=== PATIENT | male | born 1980 | race Hispanic/Latino ===

== ENCOUNTER → 2020-04-14 | Day surgery (SDC) | payer BC, OTHER ==
[2020-04-11 13:21] LABS: BASOPHILS % 0.3 % (0.0-1.0); EOSINOPHILS # (AUTO) 0.1 (0.0-0.4); EOSINOPHILS % 1.3 % (0.0-6.0); HEMATOCRIT 49.3 % (38.2-49.6); HEMOGLOBIN 16.7 g/dL (14.0-18.0); LYMPHOCYTES # (AUTO) 1.7 (1.0-3.2); LYMPHOCYTES % 27.5 % (18.0-39.1); MEAN CORPUSCULAR HGB CONC 33.9 g/dL (31-35); MEAN CORPUSCULAR VOLUME 85.6 fL (81-99); MONOCYTES # (AUTO) 0.6 (0.2-0.8); MONOCYTES % 8.9 % (4.4-11.3); NEUTROPHILS # (AUTO) 3.8 (2.1-6.9); NEUTROPHILS % 61.7 % (38.7-80.0); PLATELET COUNT 208 x10e3/uL (140-360); RED BLOOD COUNT 5.76 x10e6/uL (4.3-5.7); RED CELL DISTRIBUTION WIDTH 13.2 % (11.7-14.4)
[2020-04-11 13:32] LABS: INR 1.11
[2020-04-11 13:37] LABS: BLOOD UREA NITROGEN 10 mg/dL (7-26); BUN/CREATININE RATIO 14 (6-25); CALCIUM 9.2 mg/dL (8.4-10.2); CARBON DIOXIDE 28 mmol/L (22-29); CHLORIDE 105 mmol/L (98-107); CREATININE, SERUM 0.74 mg/dL (0.72-1.25); EST GLOMERULAR FILTRATION RATE > 60 ML/MIN (60-); GLUCOSE 114 mg/dL (74-118); SODIUM 141 mmol/L (136-145)
--- NOTE | 2020-04-11 14:12 | Diagnostic Imaging Report ---
EXAMINATION: CHEST 2 VIEWS INDICATION: Pre-operative COMPARISON: None FINDINGS: LINES/TUBES:None LUNGS:The lungs are well-inflated. No focal consolidation or pulmonary edema. PLEURA:No pleural effusion or pneumothorax. MEDIASTINUM:The cardiomediastinal silhouette appears normal in size and shape. BONES/SOFT TISSUES:No acute osseous injury. ABDOMEN:No free air under the diaphragm. IMPRESSION: No focal pneumonia or pulmonary edema. Signed by: Tere Cardozo MD on 04/11/2020 2:08 PM
[~2020-04-14] MED LIST: ACETAMINOPHEN 1000 MG/100 ML IV ONE; ACETAMINOPHEN/CODEINE 300MG - 30MG TAB ONE; AMOXICILLIN500 M1 PO; BACITRACIN 50,000 UNIT VIAL ONE; CEFAZOLIN SOD 1 GM/NS 50ML 100 ML IV ONE; DEXAMETHASONE SOD PHOS INJ 4 MG/ML VIAL ONE; ETOMIDATE 2 MG/ML 10 ML INJ IV ONE; FENTANYL CITRATE/PF 100MCG/2 ML INJ ONE; GLYCOPYRROLATE INJ 0.2 MG/ML VIAL ONE; IBUPROFEN400 MG PO; LIDOCAINE 1% W/EPINEPHRINE 20 ML VIAL ONE; LIDOCAINE HCL 1% 30ML-PF VIAL ONE; LIDOCAINE HCL 2% LOCAL INJ 5 ML SDV VIAL INJ ONE; NEOSTIGMINE 1 MG/ML 10ML VIAL ONE; NEXIUM PO; ONDANSETRON HCL INJ 2MG/ML 2ML 2 MG/ML VIAL ONE; PROPOFOL IV EMULSION 10 MG/ML 20 ML VIAL ONE; ROCURONIUM BROMIDE 10 MG/ML 5ML VIAL IV ONE; SEVOFLURANE INHAL SOLN 250 ML PEN BTL ONE; SUCCINYLCHOLINE CHLORIDE 20 MG/ML 10ML VIAL ONE; THROMBIN FOR SOLN 5,000 UNIT VIAL ONE; TYLENOL WITH C1 EACH PO
--- NOTE | 2020-04-14 09:25 | Diagnostic Imaging Report ---
EXAM: SPINE 1 VW LUMBAR, SPINE 1 VW LUMBAR DATE: 04/14/2020 7:47 AM INDICATION: L4-5 disc herniation COMPARISON: None FINDINGS/IMPRESSION: Two crosstable lateral intraoperative films were obtained. An intraoperative verbal report was not requested. Localization instrument projects towards the superior endplate of the L5 vertebral body. The osseous structures demonstrate no evidence for acute fracture or dislocation. Signed by: Dr. Martin Duran MD on 04/14/2020 9:22 AM
--- NOTE | 2020-04-14 11:14 | Operative Report ---
DATE OF PROCEDURE: 04/14/2020 SURGEON: David Montague MD PREOPERATIVE DIAGNOSIS: Right L4-L5 disk herniation with radiculopathy, M51.16. POSTOPERATIVE DIAGNOSIS: Right L4-L5 disk herniation with radiculopathy, M51.16. PROCEDURES: Right L4-L5 laminotomy, medial facetectomy, and microsurgical diskectomy, [address]. ANESTHESIA: General. INDICATIONS: The patient is a 39-year-old man, who presents with a right L4-L5 disk herniation with severe right L5 radiculopathy, refractory to conservative treatment. He was taken to surgery for microsurgical diskectomy. PROCEDURE IN DETAIL: After induction of general anesthesia, the patient was placed on the operating table in the prone position over Jung frame. The lumbar region was prepped and draped in sterile fashion. A preoperative x-ray was obtained. A small midline incision was created over the L4-5 segment. The lumbar fascia was opened in right of midline and subperiosteal dissection was carried out to expose the right side of the L4 and L5 lamina, and the medial aspect of the facet joint and second x-ray confirmed correct localization. The operating microscope was brought in. A high-speed drill equipped with a xiang bur, was used to drill the inferior aspect of the lamina of L4 and the medial rim of the inferior articular process of L4. The ligamentum flavum was resected. The dural sac and the traversing L5 nerve root were exposed. The nerve root was slightly retracted medially and the epidural veins lateral to the dural sac were bipolar coagulated and divided with micro scissors. The herniated disk material came into view. The posterior longitudinal ligament was incised with a #11 blade and the extruded disk material was retrieved with a micro ball probe and grasped with a micro pituitary rongeur and removed as a large fragment of disk. The opening into the annulus of this was enlarged with a #11 blade and the loose contents of the L4-5 disk were evacuated with curettes and pituitary rongeurs. Meticulous hemostasis was secured. Retractor was removed. The lumbar fascia was closed with 0 Vicryl suture. Subcutaneous layer was closed with 2-0 Vicryl sutures. The skin was closed with 3-0 Monocryl sutures in subcuticular fashion. Steri-Strips and dressing were applied. The patient was awakened, extubated, and taken to postanesthesia care unit in stable condition. No intraoperative complications were encountered. Estimated blood loss was 10 mL. David Montague MD PP/BREA /[id number]
[2020-04-14 11:15] VITALS: BP 126/82
== END | disposition home or self-care (01) ==
LOC: OR 05:22
PROVIDERS: ATTEND Neurological Surgery
DX: M51.16 Intervertebral disc disorders with radiculopathy, lumbar region (principal); K21.9 Gastro-esophageal reflux disease without esophagitis; G51.0 Bell's palsy; N20.0 Calculus of kidney; Z01.810 Encounter for preprocedural cardiovascular examination; Z01.812 Encounter for preprocedural laboratory examination; Z01.818 Encounter for other preprocedural examination; Z11.59 Encounter for screening for other viral diseases
CPT/HCPCS: 36415; 63047; 71046; 72020; 80048; 85025; 85610; 85730; 86850; 86900; 88304; 93005; 94660; J0131; J0330; J0690; J1100; J2001; J2405; J2704; J2710; J3010; U0002

== ENCOUNTER 2020-05-14 01:10 | Emergency (ER) | payer BC, OTHER ==
[~2020-05-14] VITALS: Ht 177.8 cm; Wt 120.2 kg
[~2020-05-14 01:10] MED LIST changes: -ACETAMINOPHEN 1000 MG/100 ML IV ONE; -ACETAMINOPHEN/CODEINE 300MG - 30MG TAB ONE; -BACITRACIN 50,000 UNIT VIAL ONE; -CEFAZOLIN SOD 1 GM/NS 50ML 100 ML IV ONE; -DEXAMETHASONE SOD PHOS INJ 4 MG/ML VIAL ONE; -ETOMIDATE 2 MG/ML 10 ML INJ IV ONE; -FENTANYL CITRATE/PF 100MCG/2 ML INJ ONE; -GLYCOPYRROLATE INJ 0.2 MG/ML VIAL ONE; -LIDOCAINE 1% W/EPINEPHRINE 20 ML VIAL ONE; -LIDOCAINE HCL 1% 30ML-PF VIAL ONE; -LIDOCAINE HCL 2% LOCAL INJ 5 ML SDV VIAL INJ ONE; -NEOSTIGMINE 1 MG/ML 10ML VIAL ONE; -ONDANSETRON HCL INJ 2MG/ML 2ML 2 MG/ML VIAL ONE; -PROPOFOL IV EMULSION 10 MG/ML 20 ML VIAL ONE; -ROCURONIUM BROMIDE 10 MG/ML 5ML VIAL IV ONE; -SEVOFLURANE INHAL SOLN 250 ML PEN BTL ONE; -SUCCINYLCHOLINE CHLORIDE 20 MG/ML 10ML VIAL ONE; -THROMBIN FOR SOLN 5,000 UNIT VIAL ONE
--- NOTE | 2020-05-14 01:25 | Emergency Department Note ---
History of Present Illnes History of Present Illness Chief Complaint: Back Pain History of Present Illness This is a 39 year old male Chief Complaint Comment Patient c/o lower back pain that started earlier today while he was at work. Patient states he recently had V2qafadoi here approx [address] Montague. Patient states the pain became severe today at approx 2300 and called EMS. Patient states pain is now on left buttocks with radiation down left leg. Prior to surgery, pain was down right leg. Historian: Patient, Compliance Consultant/EMS EMS Treatment CUSTOMER SUPPORT ASSISTANT: IV, See EMS Report Additional Treatment CUSTOMER SUPPORT ASSISTANT: 75 mcg fentanyl Location: Lower back Quality: L leg Severity: moderate Onset quality: gradual Duration (how long): day(s) (2) Timing of current episode: constant Progression: improving Chronicity: new Context: Reports recent surgery; Denies recent illness Relieving factors: none Exacerbating factors: none Associated symptoms: Reports denies other symptoms Treatments prior to arrival: none Past Medical/Family History Physician Review I have reviewed the patient's past medical and family history. Any updates have been documented here. Past Medical History Recent Fever: No Clinical Suspicion of Infectio: No New/Unexplained Change in Ment: No Past Medical History: None Past Surgical History: Appendectomy Other Surgery: lumbar sx Other Last Tetanus: WITHIN 10 YEARS Review of Systems Review of Systems Constitutional: Reports no symptoms EENTM: Reports no symptoms Cardiovascular: Reports no symptoms Respiratory: Reports no symptoms Gastrointestinal: Reports no symptoms Genitourinary: Reports no symptoms Musculoskeletal: Reports back pain, Reports other (L leg pain) Integumentary: Reports no symptoms Neurological: Reports no symptoms Psychological: Reports no symptoms Endocrine: Reports no symptoms Hematological/Lymphatic: Reports no symptoms Physical Exam Related Data Allergies: Coded Allergies: No Known Drug Allergies (Verified Allergy, Unknown, 04/15/20) Triage Vital Signs Vital Signs Date Time Temp Pulse Resp B/P (MAP) Pulse Ox O2 Delivery O2 Flow Rate FiO2 05/14/20 01:15 99.5 95 22 123/77 95 Room Air Vital signs reviewed: Yes Physical Exam CONSTITUTIONAL Constitutional: Present well-developed, Present well-nourished HENT HENT: Present normocephalic, Present atraumatic, Present oropharynx clear/moist, Present nose normal HENT L/R: Present left ext ear normal, Present right ext ear normal EYES Eyes: Reports PERRL, Reports conjunctivae normal NECK Neck: Present ROM normal PULMONARY Pulmonary: Present effort normal, Present breath sounds normal CARDIOVASCULAR Cardiovascular: Present regular rhythm, Present heart sounds normal, Present capillary refill normal, Present normal rate GASTROINTESTINAL Abdominal: Present soft, Present nontender, Present bowel sounds normal GENITOURINARY Genitourinary: Present exam deferred SKIN Skin: Present warm, Present dry MUSCULOSKELETAL Musculoskeletal: Present ROM normal NEUROLOGICAL Neurological: Present alert, Present oriented x 3, Present no gross motor or sensory deficits; Absent sensory deficit (Sensation intact to 2 point discrimination in LE), Absent abnormal coordination, Absent weakness PSYCHOLOGICAL Psychological: Present mood/affect normal, Present judgement normal Assessment & Plan Medical Decision Making MDM 39-year-old male with a recent history of lumbar surgery for herniated disks who presents to emergency department for worsening back pain radiating down into his left leg. This started yesterday and got acutely worse tonight. He denies bowel or bladder problems, no numbness or weakness. He is able to walk but with some pain. He is given 75 g of fentanyl en route by EMS and his pain is now largely resolved. CT lumbar spine shows no acute abnormalities. No signs to suggest cauda Equina or other acute emergency. Discussed management with patient and he will call his Spine surgeon for follow up. return precautions given and patient is appropriate for DC. Reassessment Reassessment time: 01:59 Reassessment Well appearing, pain largely resolved Assessment & Plan Final Impression: (1) Back pain Depart Disposition: HOME, SELF-CARE Last Vital Signs Date Time Temp Pulse Resp B/P (MAP) Pulse Ox O2 Delivery O2 Flow Rate FiO2 05/14/20 01:15 99.5 95 22 123/77 95 Room Air Home Meds Reported Medications Acetaminophen With Codeine (TYLENOL WITH CODEINE #3 TABLET) 1 Each Tablet, 300 MG PO PRN, TAB 04/11/20 Ibuprofen (IBUPROFEN) 400 Mg Tablet, 800 MG PO PRN, TAB 04/11/20 RICKEY MARS MD May 14, 2020 01:25
--- OUTSIDE RECORDS SUMMARY | 2020-05-14 02:15 | XMS REPORT | Continuity of Care Document ---
Author Author [facility] t Organization [facility] Address [address] [place] [address] Dr. Sandoval [address] [place] [phone] Phone Unavailable Care Team Providers Care Flyer Repairer Name Role Phone SACHI LANGSTON Attphys Unavailable Problems This patient has no known problems. Allergies, Adverse Reactions, Alerts This patient has no known allergies or adverse reactions. Medications This patient has no known medications. Procedures This patient has no known procedures. Results Test Description Test Time Test Comments Results Result Comments Source SPINE 1 VW LUMBAR 2020-04-14 09:20:[address] [address] Patient Name: ELIZABETH VERGARA MR #: [id number] : 1980 Age/Sex: 39/M Req #: [id number] Adm Physician: Ordered by: SACHI LANGSTON MD Report #: [id number] Location: OR Room/Bed: Procedure: [id number] DX/SPINE 1 VW LUMBAR Exam Date: 04/14/20 Exam Time: 734 REPORT STATUS: Signed EXAM: SPINE 1 VW LUMBAR, SPINE 1 VW LUMBAR DATE: 04/14/2020 7:47 AM INDICATION: L4-5 disc herniation COMPARISON: None FINDINGS/IMPRESSION: Two crosstable lateral intraoperative films were obtained. An intraoperative verbal report was not requested. Localization instrument projects towards the superior endplate of the L5 vertebral body. The osseous structures demonstrate no evidence for acute fracture or dislocation. Signed by: Dr. Martin Duran MD on 04/14/2020 9:22 AM Dictated By: MARTIN DURAN MD 1 Transcribed By: MAHNAZ on 04/14/20921 COPY TO: SACHI LANGSTON MD SPINE 1 VW LUMBAR 2020-04-14 09:20:00 [place] [address] Patient Name: ELIZABETH VERGARA MR #: [id number] : 1980 Age/Sex: 39/M Req #: [id number] Adm Physician: Ordered by: SACHI LANGSTON MD Report #: [id number] Location: OR Room/Bed: Procedure: [id number] DX/SPINE 1 VW LUMBAR Exam Date: 04/14/20 Exam Time: 0747 REPORT STATUS: Signed EXAM: SPINE 1 VW LUMBAR, SPINE 1 VW LUMBAR DATE: 04/14/2020 7:47 AM INDICATION: L4-5 disc herniation COMPARISON: None FINDINGS/IMPRESSION: Two crosstable lateral intraoperative films were obtained. An intraoperative verbal report was not requested. Localization instrument projects towards the superior endplate of the L5 vertebral body. The osseous structures demonstrate no evidence for acute fracture or dislocation. Signed by: Dr. Martin Duran MD on 04/14/2020 9:22 AM Dictated By: MARTIN DUARN MD 1 Transcribed By: MAHNAZ on 04/14/20921 COPY TO: SACHI LANGSTON MD CHEST 2 VIEWS 2020-04-11 14:08:00 [facility] [address] [address] Patient Name: ELIZABETH VERGARA MR #: [id number] : 1980 Age/Sex: 39/M Req #: [id number] Adm Physician: Ordered by: SACHI LANGSTON MD Report #: [id number] Location: OR Room/Bed: Procedure: [id number] DX/CHEST 2 VIEWS Exam Date: 04/11/20 Exam Time: 1312 REPORT STATUS: Signed EXAMINATION: CHEST 2 VIEWS INDICATION: Pre-operative COMPARISON: None FINDINGS: LINES/TUBES:None LUNGS:The lungs are well-inflated. No focal consolidation or pulmonary edema. PLEURA:No pleural effusion or pneumothorax. MEDIAS TINUM:The cardiomediastinal silhouette appears normal in size and shape. BONES/SOFT TISSUES:No acute osseous injury. ABDOMEN:No free air under the diaphragm. IMPRESSION: No focal pneumonia or pulmonary edema. Signed by: Roscoe Barney MD on 04/11/2020 2:08 PM Dictated By: ROSCOE BARNEY MD 07 Transcribed By: MAHNAZ on 04/11/201407 COPY TO: SACHI LANGSTON MD
--- NOTE | 2020-05-14 03:08 | Diagnostic Imaging Report ---
Examination: CT LUMBAR SPINE WO History: Low back pain Comparison studies: None Technique: Axial images were obtained through the lumbar spine from L1 Coronal and sagittal reconstructions obtained from the axial data. Dose modulation, iterative reconstruction, and/or weight based adjustment of the mA/kV was utilized to reduce the radiation dose to as low as reasonably achievable. Intravenous contrast: None Findings: The usual 5 non-rib bearing lumbar vertebral bodies are present. Alignment: Normal lordosis. No scoliosis. Soft tissues: No abnormalities. Paraspinal muscles: Unremarkable. Sacroiliac joints: No degenerative changes. Vertebrae: No fractures, infection or neoplasm. Degenerative changes: L1-L2 through L3-L4: No abnormalities. L4-L5: Prior right laminotomy. L5-S1: Diffuse disc bulge result in severe bilateral neural foraminal narrowing. No canal stenosis. IMPRESSION: 1. No acute abnormality. 2. Severe bilateral neural foraminal narrowing at L5-S1. 3. Prior right laminotomy at L4-L5. Signed by: Dr. Florina Pratt M.D. on 05/14/2020 3:04 AM
[2020-05-14 03:17] VITALS: BP 119/74
== END 2020-05-14 03:32 | disposition home or self-care (01) ==
LOC: ER 01:30
DX: M54.5 Low back pain (principal); Z98.890 Other specified postprocedural states
CPT/HCPCS: 72131; 99284

== ENCOUNTER 2022-07-26 14:58 | Outpatient (RCR) | payer BC | END 2022-07-30 | LOC: PT 14:58 | PROVIDERS: ATTEND Neurological Surgery | DX: M51.17 Intervertebral disc disorders with radiculopathy, lumbosacral region (principal); M54.50 Low back pain, unspecified; M53.86 Other specified dorsopathies, lumbar region; M62.81 Muscle weakness (generalized) ==

== ENCOUNTER 2022-07-31 09:18 | Outpatient (RCR) | payer BC | END 2022-08-29 | LOC: PT 09:18 | PROVIDERS: ATTEND Neurological Surgery | DX: M51.17 Intervertebral disc disorders with radiculopathy, lumbosacral region (principal); M54.50 Low back pain, unspecified; M62.81 Muscle weakness (generalized); M53.86 Other specified dorsopathies, lumbar region ==